=== PATIENT | female | born 1980 | race Caucasian/White ===

== ENCOUNTER 2017-05-17 13:29 | Outpatient (CLI) | payer OTHER | END 2017-05-17 13:30 | disposition home or self-care (01) | LOC: DI 13:29 | DX: R00.2 Palpitations (principal) | CPT/HCPCS: 93306 ==

== ENCOUNTER 2017-10-20 08:39 | Outpatient (CLI) | payer OTHER ==
--- NOTE | 2017-10-22 09:50 | Mammography Report ---
DATE OF SERVICE: 10/20/2017 DIGITAL SCREENING MAMMOGRAM: 10/20/2017 CLINICAL INDICATION: A 37-year-old, for baseline. TECHNIQUE: Routine CC and MLO projections were obtained of the breasts. FINDINGS: The breasts demonstrate heterogeneously dense fibroglandular parenchyma bilaterally. Coarse, typically benign calcifications are present. No suspicious masses, clustered microcalcifications, or regions of architectural distortion are identified. IMPRESSION: BENIGN FINDINGS. RECOMMENDATION: ROUTINE ANNUAL SCREENING, TO COMMENCE AT AGE 40, UNLESS OTHERWISE CLINICALLY INDICATED. BIRADS CATEGORY 2-BENIGN FINDINGS. STANDARD QUALIFYING STATEMENTS: 1. This examination was reviewed with the aid of Computer-Aided Detection (CAD). 2. A negative or benign imaging report should not delay biopsy if clinically suspicious findings are present. Consider surgical consultation if warranted. More than 5% of cancers are not identified by imaging. 3. Dense breasts may obscure an underlying neoplasm. TD: 10/22/2017 10:49
== END 2017-10-20 08:40 | disposition home or self-care (01) ==
LOC: DI 08:39
PROVIDERS: ATTEND Family Medicine
DX: Z12.31 Encounter for screening mammogram for malignant neoplasm of breast (principal)
CPT/HCPCS: 77067

== ENCOUNTER 2017-12-24 08:00 | Outpatient (CLI) | payer OTHER ==
[2017-12-24 12:59] LABS: BASOPHILS % (AUTO) 0.4 %; EOSINOPHILS % (AUTO) 0.3 %; LYMPHOCYTES # (AUTO) 1.1 10^3/uL (1.5-3.5); LYMPHOCYTES % (AUTO) 12.6 %; MEAN CORPUSCULAR HEMOGLOBIN 30.2 pg (27.0-31.0); MEAN CORPUSCULAR HGB CONC 33.7 g/dL (32.0-36.0); MEAN CORPUSCULAR VOLUME 89.7 fL (81.0-99.0); MONOCYTES # (AUTO) 0.8 10^3/uL (0.0-1.0); MONOCYTES % (AUTO) 9.1 %; NEUTROPHILS # (AUTO) 6.8 10^3/uL (1.5-6.6); NEUTROPHILS % (AUTO) 77.6 %; PLT - PLATELET COUNT 209 10^3/uL (130-450); RED BLOOD COUNT 3.96 10^6/uL (4.20-5.40); RED CELL DISTRIBUTION WIDTH 12.9 % (12.0-15.0); WHITE BLOOD COUNT 8.8 x10^3/uL (4.8-10.8)
[2017-12-24 13:24] LABS: ALBUMIN 4.4 g/dL (3.2-5.5); ALBUMIN/GLOBULIN RATIO 1.5 (1.0-2.2); BILIRUBIN,TOTAL 0.6 mg/dL (0.2-1.0); CREATININE 0.6 mg/dL (0.4-1.0); TOTAL PROTEIN 7.3 g/dL (6.7-8.2)
== END 2017-12-24 08:01 | disposition home or self-care (01) ==
LOC: LAB.WCP 08:00
PROVIDERS: ATTEND Physician Assistant Medical
DX: R07.9 Chest pain, unspecified (principal)
CPT/HCPCS: 36415; 80053; 85025; 85379; 85651

== ENCOUNTER 2017-12-24 19:45 | Emergency (ER) | payer OTHER ==
[2017-12-24] MEDS ORDERED: IOPAMIDOL-300 100 ML VIAL IVP ONE ×2 (19:46→22:05)
[2017-12-24 20:33] LABS: BASOPHILS % (AUTO) 0.5 %; EOSINOPHILS # (AUTO) 0.1 10^3/uL (0.0-0.7); EOSINOPHILS % (AUTO) 0.6 %; HGB - HEMOGLOBIN 11.8 g/dL (12.0-16.0); LYMPHOCYTES # (AUTO) 1.6 10^3/uL (1.5-3.5); LYMPHOCYTES % (AUTO) 17.2 %; MEAN CORPUSCULAR HEMOGLOBIN 29.7 pg (27.0-31.0); MEAN CORPUSCULAR HGB CONC 33.3 g/dL (32.0-36.0); MEAN CORPUSCULAR VOLUME 89.1 fL (81.0-99.0); MEAN PLATELET VOLUME 7.6 fL (7.9-10.8); MONOCYTES # (AUTO) 0.9 10^3/uL (0.0-1.0); MONOCYTES % (AUTO) 9.6 %; NEUTROPHILS # (AUTO) 6.9 10^3/uL (1.5-6.6); NEUTROPHILS % (AUTO) 72.1 %; PLT - PLATELET COUNT 221 10^3/uL (130-450); RED BLOOD COUNT 3.97 10^6/uL (4.20-5.40); RED CELL DISTRIBUTION WIDTH 12.7 % (12.0-15.0); WHITE BLOOD COUNT 9.6 x10^3/uL (4.8-10.8)
[2017-12-24 20:47] LABS: ALBUMIN 4.4 g/dL (3.2-5.5); ALBUMIN/GLOBULIN RATIO 1.4 (1.0-2.2); BILIRUBIN,TOTAL 0.4 mg/dL (0.2-1.0); CREATININE 0.7 mg/dL (0.4-1.0); TOTAL PROTEIN 7.6 g/dL (6.7-8.2)
[2017-12-24] MEDS ORDERED: ceFAZolin 1 GM in SODIUM CHLORIDE 0.9% MINIBAG 100 ML IV STA (21:12)
--- NOTE | 2017-12-24 21:18 | ED Physician Documentation ---
PD HPI CHEST PAIN - Stated complaint Stated Complaint: Right sided chest pain - Chief complaint Chief Complaint: Resp - History obtained from History obtained from: Patient - History of Present Illness Timing - onset: Other (37-year-old woman who had breast augmentation surgery 1 month and 3 days ago. About a week ago she developed chills and right-sided pain that she thinks is from the breast radiating into the sternum and a little bit into the back. She has had chills ever since but no measured fevers. She texted a picture of her wound to the doctor, her surgeon in [place] yesterday who called her in a prescription for Keflex. She saw STACIE Sales in [place] today who did a sed rate, it was modestly elevated at 44 but she had a normal white count. D-dimer was modestly elevated at 444 and was sent here to rule out pulmonary embolism.) Review of Systems Ten Systems: 10 systems reviewed and negative Constitutional: reports: Chills. denies: Fever Cardiac: reports: Chest pain / pressure. 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 - Present Medications Home Medications: Ambulatory Orders Medication Instructions Recorded Confirmed Cephalexin [Keflex] 500 mg ORAL QID 12/24/17 12/24/17 - Allergies Allergies/Adverse Reactions: Allergies Allergy/AdvReac Type Severity Reaction Status Date / Time No Known Drug Allergies Allergy Verified 12/24/17 19:54 - Social History Does the pt smoke?: No Smoking Status: Never smoker Does the pt drink ETOH?: Yes Does the pt have substance abuse?: No - Family History Family history: reports: Non contributory - Immunizations Immunizations are current?: Yes - POLST Patient has POLST: No PD ED PE NORMAL - Vitals Vital signs reviewed: Yes - General General: Alert and oriented X 3, No acute distress - HEENT HEENT: PERRL, EOMI - Neck Neck: Supple, no meningeal sign, No bony TTP - Cardiac Cardiac: RRR, No murmur - Respiratory Respiratory: No respiratory distress, Clear bilaterally - Abdomen Abdomen: Normal bowel sounds, Soft, Non tender - Derm Derm: Other (Done with Vanessa, environmental science technician present in chaperoning, there is redness around the subcuticular incision on the inferior part of the right breast with some tenderness. No fluctuance or mass.) - Extremities Extremities: No edema, No calf tenderness / cord - Neuro Neuro: Alert and oriented X 3, Normal speech Results - Vitals Vitals: Vital Signs - 24 hr 12/24/17 12/24/17 12/24/17 19:50 20:22 21:31 Temperature 37.2 C 37.1 C Heart Rate 78 75 69 Respiratory 20 12 12 Rate Blood Pressure 118/76 124/81 H 111/69 O2 Saturation 99 100 100 Oxygen O2 Source Room air - Labs Labs: Laboratory Tests 12/24/17 12/24/17 20:25 20:25 WBC 9.6 RBC 3.97 L Hgb 11.8 L Hct 35.4 L MCV 89.1 MCH 29.7 MCHC 33.3 RDW 12.7 Plt Count 221 MPV 7.6 L Neut # 6.9 H Lymph # 1.6 [place] # 0.9 Eos # 0.1 Baso # 0.0 Absolute Nucleated RBC 0.00 Nucleated RBC % 0.0 Sodium 136 Potassium 3.2 L Chloride 101 Carbon Dioxide 26 Anion Gap 9.0 BUN 11 Creatinine 0.7 Estimated GFR (MDRD) 94 Glucose 101 H Calcium 9.0 Total Bilirubin 0.4 AST 16 ALT 10 Alkaline Phosphatase 57 Total Protein 7.6 Albumin 4.4 Globulin 3.2 Albumin/Globulin Ratio 1.4 Lipase 15 L - Rads (name of study) CTA Chest Radiology: EMP read contemporaneously (Initial interpretation was negative except for a small right pleural effusion, I called the radiologist and lucero his attention to a fluid collection posterior to the right breast implant which he agreed could be seroma, abscess etc.) PD MEDICAL DECISION MAKING - ED course ED course: 37-year-old woman with right-sided chest pain a little over a month out from a breast augmentation, and there is evidence of infection on examination but with a normal white count and no fever. CT demonstrated no PE, but she did have a fluid collection behind the right breast. Case was discussed by phone with her surgeon Dr. Jonas who recommended the continuation of antibiotics and he will see her on Wednesday. Departure - Departure Disposition: Home, Self Care Clinical Impression: Chest pain Qualifiers: Chest pain type: unspecified Qualified Code(s): R07.9 - Chest pain, unspecified Condition: Good Record reviewed to determine appropriate education?: Yes Comments: Continue the antibiotic at the 500 mg dose, return if worse. Follow-up with your surgeon on Wednesday.
[2017-12-24] MEDS ORDERED: IOPAMIDOL-300 100 ML VIAL ONE (21:32)
[2017-12-24] MEDS ORDERED: oxyCOD/ACETAMIN 5 MG/325 MG TABLET PO STA (22:14)
--- NOTE | 2017-12-24 22:31 | CT Report ---
EXAM: CT ANGIOGRAM CHEST EXAM DATE: 12/24/2017 10:08 PM. CLINICAL HISTORY: Chest pain COMPARISON: None. TECHNIQUE: Routine helical imaging was performed through the chest in the pulmonary arterial phase. I V Contrast: 80 cc Isovue 300. Reconstructions: Coronal 3-D MIP reconstructions.Sagittal and coronal. In accordance with CT protocol optimization, one or more of the following dose reduction techniques w ere utilized for this exam: automated exposure control, adjustment of mA and/or KV based on patient s ize, or use of iterative reconstructive technique. FINDINGS: Pulmonary Arteries: Diagnostic quality: Adequate through the segmental arteries. No evidence for acute or chronic pulmona ry emboli. Lungs/Pleura: There is very small right pleural effusion. There is mild bibasilar atelectasis. No luke dence of lobar infiltrate. No central airway abnormalities. No pneumothorax. Mediastinum: Normal. No cardiac enlargement or adenopathy. Thoracic Aorta: Unremarkable. Upper Abdomen: Unremarkable. Other: None. IMPRESSION: 1. No evidence of acute pulmonary embolism. 2. No thoracic aortic dissection. 3. There is a small right pleural effusion. There is mild bibasilar atelectasis. 4. No pneumothorax. [facility] Referring Provider Line: [phone] SITE ID: [id number]
--- NOTE | 2017-12-24 22:31 | CT Preliminary Report ---
Exam: CT CHEST ANGIO (PE) IMPRESSION: 1. No evidence of acute pulmonary embolism. 2. No thoracic aortic dissection. 3. There is a small right pleural effusion. There is mild bibasilar atelectasis. 4. No pneumothorax. [facility] SITE ID: [id number]
[2017-12-24 23:36] VITALS: BP 110/69
== END 2017-12-24 23:36 | disposition home or self-care (01) ==
LOC: ED 19:45
DX: T81.4XXA Infection following a procedure, initial encounter (principal); R07.9 Chest pain, unspecified; Y83.8 Other surgical procedures as the cause of abnormal reaction of the patient, or of later complication, without mention of misadventure at the time of the procedure; Z98.82 Breast implant status
CPT/HCPCS: 36415; 71275; 80053; 83690; 85025; 85379; 85651; 96365; 99284; A9270; Q9967

== ENCOUNTER 2018-02-18 14:10 | Outpatient (CLI) | payer OTHER ==
[2018-02-18 19:26] LABS: BILIRUBIN,URINE NEGATIVE (NEGATIVE); GLUCOSE, URINE (UA) NEGATIVE (NEGATIVE); KETONES,URINE (UA) NEGATIVE (NEGATIVE); LEUKOCYTE ESTERASE, URINE NEGATIVE (NEGATIVE); NITRITE,URINE NEGATIVE (NEGATIVE); OCCULT BLOOD,URINE NEGATIVE (NEGATIVE); PH,URINE 5.5 PH (5.0-7.5); PROTEIN,URINE NEGATIVE (NEGATIVE); UROBILINOGEN,URINE 0.2 (NORMAL) E.U./dL (NORMAL)
[2018-02-18 19:28] LABS: CLARITY,URINE CLEAR (CLEAR); HCG UR QUAL NEGATIVE
== END 2018-02-18 14:11 | disposition home or self-care (01) ==
LOC: LAB.WCP 14:10
PROVIDERS: ATTEND Plastic Surgery
DX: Z01.812 Encounter for preprocedural laboratory examination (principal); N64.82 Hypoplasia of breast
CPT/HCPCS: 81001; 81003; 81025